=== PATIENT | male | born 1985 | race Caucasian/White ===

== ENCOUNTER 2017-04-15 18:52 | Emergency (ER) | payer OTHER ==
--- NOTE | 2017-04-15 19:14 | ERPHSYRPT ---
- History of Present Illness Time Seen by Provider: 04/15/17 19:00 Historian: patient Exam Limitations: no limitations Patient Subjective Stated Complaint: palpitations, chest pain Physician History: Pt is nonsmoker, admits smoking marijuana, states he had few drinks 3 days ago, Friday night, when he was at a green party, and played the guitar. He started feeling palpitations, which lasted all weekend intermittently. He started c/o left sided chest pressure few hours ago, it has been constant, not radiating, did not take any medications. He denies other complaints, no productive cough, cold, fever. nausea, dizziness, or vomiting. He admitted later, that he has not been taking his Coreg since Friday, because he was drinking, and also took OTC cold medicine. Timing/Duration: day(s) (3) Activities at Onset: activity Quality: pressure Location: other (left chest) Chest Pain Radiation: no radiation Severity of Pain-Max: mild Severity of Pain-Current: mild Modifying Factors: Improves With: nothing Associated Symptoms: palpitations, shortness of breath Prior Chest Pain/Cardiac Workup: no prior chest pain Aspirin Treatment Today: no aspirin today Allergies/Adverse Reactions: No Known Allergies Allergy (Mild, Verified 04/15/17 19:13) Home Medications: Carvedilol 12.5 mg [Coreg 12.5 mg] 40 mg 04/15/17 [History] - Review of Systems Cardiac: Chest Pain, Palpitations All Other Systems: Reviewed and Negative - Past Medical History Pertinent Past Medical History: Yes Cardiac History: Hypertension - Nursing Vital Signs Nursing Vital Signs: Initial Vital Signs Temperature 97.9 F 04/15/17 19:04 Pulse Rate 118 H 04/15/17 19:04 Respiratory Rate 15 04/15/17 19:04 Blood Pressure 176/118 04/15/17 19:04 O2 Sat by Pulse Oximetry 97 04/15/17 19:04 Pain Scale Pain Intensity 0 - Physical Exam General Appearance: no apparent distress Ears, Nose, Throat Exam: normal ENT inspection, moist mucous membranes Neck Exam: normal inspection, non-tender, supple, No mass, No lymphadenopathy Respiratory Exam: normal breath sounds, lungs clear, No chest tenderness, No respiratory distress Cardiovascular Exam: regular rate/rhythm, normal heart sounds, normal peripheral pulses, No murmur Gastrointestinal/Abdomen Exam: soft, normal bowel sounds, No tenderness, No distention Back Exam: normal inspection, No CVA tenderness Extremity Exam: normal inspection, No calf tenderness, No pedal edema Neurologic Exam: alert, oriented x 3, cooperative, normal mood/affect Skin Exam: normal color, warm, dry, No rash Lymphatic Exam: No adenopathy SpO2 Interpretation: normal Oxygen Delivery: Room Air - Course EKG Interpreted by Me: RATE (107/min), Sinus Tach, Left Ajo Deviation, Non- specific ST Changes - Radiology Exams Chest X-ray Interpretation: Interpreted by me, Negative, No Pneumonia, No Pneumothorax , No Infiltrates Ordered Tests: Active Orders 24 hr Category Date Time Status Clean Catch Urine Specimen STAT Care 04/15/17 19:19 Active EKG-ER Only STAT Care 04/15/17 19:16 Active EKG-ER Only STAT Care 04/15/17 22:15 Active IV Insertion STAT Care 04/15/17 19:16 Active Oxygen-ED Only NASAL CANNULA 2 lpm Care 04/15/17 19:16 Active CHEST 1 VIEW (PORTABLE) Stat Exams 04/15/17 19:17 Taken CBC W DIFF Stat Lab 04/15/17 19:25 Completed CMP Stat Lab 04/15/17 19:25 Completed D-DIMER QUANTITATION Stat Lab 04/15/17 20:12 Completed MAGNESIUM Stat Lab 04/15/17 19:16 Completed NT PRO BNP Stat Lab 04/15/17 19:25 Completed PROTIME WITH INR Stat Lab 04/15/17 19:25 Completed TROPONIN Q3H Lab 04/15/17 19:25 Completed TROPONIN Q3H Lab 04/15/17 22:56 Completed TROPONIN Q3H Lab 04/16/17 01:30 Ordered TROPONIN Q3H Lab 04/16/17 04:30 Ordered TROPONIN Q3H Lab 04/16/17 07:30 Ordered TSH, 3RD Generation Stat Lab 04/15/17 19:25 Completed Urine Triage Profile Stat Lab 04/15/17 20:04 Completed Respiratory Nebulizer STAT RT 04/15/17 20:54 Completed Medication Summary Generic Name Dose Route Start Last Admin Trade Name Freq PRN Reason Stop Dose Admin Potassium Chloride 40 meq 04/16/17 10:00 04/15/17 20:21 Potassium Chloride 20 Meq Powder For Oral Monique PO 05/16/17 09:59 40 meq DAILY RENÉ Administration Discontinued Medications Generic Name Dose Route Start Last Admin Trade Name Freq PRN Reason Stop Dose Admin Albuterol/Ipratropium 3 ml 04/15/17 20:54 04/15/17 21:17 Duoneb 0.5-3 Mg/3 Ml Neb IH 04/15/17 20:55 3 ml STAT ONE Administration Albuterol/Ipratropium Confirm 04/15/17 21:14 Duoneb 0.5-3 Mg/3 Ml Neb Administered 04/15/17 21:15 Dose 3 ml IH .STK-MED ONE Aspirin 324 mg 04/15/17 19:16 04/15/17 19:23 Baby Aspirin 81 Mg Chew PO 04/15/17 19:17 324 mg STAT ONE Administration Aspirin Confirm 04/15/17 19:21 Baby Aspirin 81 Mg Chew Administered 04/15/17 19:22 Dose 324 mg .ROUTE .STK-MED ONE Clonidine 0.1 mg 04/15/17 19:20 04/15/17 19:26 Catapres 0.1 Mg PO 04/15/17 19:21 0.1 mg STAT ONE Administration Clonidine Confirm 04/15/17 19:25 Catapres 0.1 Mg Administered 04/15/17 19:26 Dose 0.1 mg .ROUTE .STK-MED ONE Hydralazine HCl 10 mg 04/15/17 20:54 04/15/17 21:27 Apresoline 20 Mg/Ml Inj IV 04/15/17 20:55 10 mg STAT ONE Administration Hydralazine HCl Confirm 04/15/17 21:00 Apresoline 20 Mg/Ml Inj Administered 04/15/17 21:01 Dose 20 mg .ROUTE .STK-MED ONE Sodium Chloride 1,000 mls @ 999 mls/hr 04/15/17 20:12 04/15/17 20:21 Sodium Chloride 0.9% 1000 Ml IV 04/15/17 21:12 999 mls/hr .Q1H1M STA Administration Sodium Chloride Confirm 04/15/17 20:15 Sodium Chloride 0.9% 1000 Ml Administered 04/15/17 20:16 Dose 1,000 mls @ ud .ROUTE .STK-MED ONE Lorazepam 1 mg 04/15/17 19:18 04/15/17 19:23 Ativan 1 Mg PO 04/15/17 19:19 1 mg STAT ONE Administration Lorazepam Confirm 04/15/17 19:21 Ativan 1 Mg Administered 04/15/17 19:22 Dose 1 mg .ROUTE .STK-MED ONE Potassium Chloride 40 meq 04/16/17 10:00 Potassium Chl 40 Meq/30 Ml Oral Solution PO 05/16/17 09:59 DAILY RENÉ Potassium Chloride Confirm 04/15/17 20:16 Potassium Chloride 20 Meq Powder For Oral Monique Administered 04/15/17 20:17 Dose 40 meq .ROUTE .STK-MED ONE Lab/Rad Data: Laboratory Result Diagrams 04/15/17 19:25 04/15/17 19:25 Laboratory Results 04/15/17 04/15/17 04/15/17 Range/Units 22:56 20:12 20:04 WBC (4.0-10.5) K/mm3 RBC (4.1-5.6) M/mm3 Hgb (12.5-18.0) gm/dl Hct (42-50) % MCV (78-100) fl MCH (26-32) pg MCHC (32-36) g/dl RDW (11.5-14.0) % Plt Count (150-450) K/mm3 MPV (6-9.5) fl Gran % (36.0-66.0) % Lymphocytes % (24.0-44.0) % Monocytes % (0.0-12.0) % Eosinophils % (0.00-5.0) % Basophils % (0.0-0.4) % Basophils # (0-0.4) INR (0.8-3.0) D-Dimer < 215 (0-500) ng/mL Sodium (136-145) mEq/L Potassium (3.5-5.1) mEq/L Chloride (98-107) mEq/L Carbon Dioxide (21-32) mEq/L Anion Gap (5-15) MEQ/L BUN (9-20) mg/dL Creatinine (0.55-1.30) mg/dl Estimated GFR ML/MIN Glucose (70-110) MG/DL Calcium (8.5-10.1) mg/dL Magnesium (1.8-2.4) mg/dL Total Bilirubin (0.2-1.0) mg/dL AST (15-37) U/L ALT (12-78) U/L Alkaline Phosphatase (46-116) U/L Troponin I < 0.017 (0.000-0.056) ng/ml NT-Pro-B Natriuret Pep (0-125) pg/ml Serum Total Protein (6.4-8.2) gm/dL Albumin (3.4-5.0) g/dL TSH 3rd Generation (0.358-3.740) mIU/L Urine Opiates Level NEG. (NEGATIVE) Ur Methadone NEG. (NEGATIVE) Urine Barbiturates NEG. (NEGATIVE) Ur Phencyclidine (PCP) NEG. (NEGATIVE) Urine Amphetamine POS. (NEGATIVE) U Benzodiazepine Level NEG. (NEGATIVE) Urine Cocaine NEG. (NEGATIVE) Urine Marijuana (THC) POS. (NEGATIVE) 04/15/17 04/15/17 04/15/17 Range/Units 19:25 19:25 19:25 WBC (4.0-10.5) K/mm3 RBC (4.1-5.6) M/mm3 Hgb (12.5-18.0) gm/dl Hct (42-50) % MCV (78-100) fl MCH (26-32) pg MCHC (32-36) g/dl RDW (11.5-14.0) % Plt Count (150-450) K/mm3 MPV (6-9.5) fl Gran % (36.0-66.0) % Lymphocytes % (24.0-44.0) % Monocytes % (0.0-12.0) % Eosinophils % (0.00-5.0) % Basophils % (0.0-0.4) % Basophils # (0-0.4) INR 1.19 (0.8-3.0) D-Dimer (0-500) ng/mL Sodium (136-145) mEq/L Potassium (3.5-5.1) mEq/L Chloride (98-107) mEq/L Carbon Dioxide (21-32) mEq/L Anion Gap (5-15) MEQ/L BUN (9-20) mg/dL Creatinine (0.55-1.30) mg/dl Estimated GFR ML/MIN Glucose (70-110) MG/DL Calcium (8.5-10.1) mg/dL Magnesium (1.8-2.4) mg/dL Total Bilirubin (0.2-1.0) mg/dL AST (15-37) U/L ALT (12-78) U/L Alkaline Phosphatase (46-116) U/L Troponin I < 0.017 (0.000-0.056) ng/ml NT-Pro-B Natriuret Pep (0-125) pg/ml Serum Total Protein (6.4-8.2) gm/dL Albumin (3.4-5.0) g/dL TSH 3rd Generation 0.962 (0.358-3.740) mIU/L Urine Opiates Level (NEGATIVE) Ur Methadone (NEGATIVE) Urine Barbiturates (NEGATIVE) Ur Phencyclidine (PCP) (NEGATIVE) Urine Amphetamine (NEGATIVE) U Benzodiazepine Level (NEGATIVE) Urine Cocaine (NEGATIVE) Urine Marijuana (THC) (NEGATIVE) 04/15/17 04/15/17 04/15/17 Range/Units 19:25 19:25 19:16 WBC 12.2 H (4.0-10.5) K/mm3 RBC 5.53 (4.1-5.6) M/mm3 Hgb 16.1 (12.5-18.0) gm/dl Hct 47.7 (42-50) % MCV 86.3 (78-100) fl MCH 29.1 (26-32) pg MCHC 33.8 (32-36) g/dl RDW 13.6 (11.5-14.0) % Plt Count 383 (150-450) K/mm3 MPV 10.3 H (6-9.5) fl Gran % 74.1 H (36.0-66.0) % Lymphocytes % 18.6 L (24.0-44.0) % Monocytes % 6.7 (0.0-12.0) % Eosinophils % 0.3 (0.00-5.0) % Basophils % 0.3 (0.0-0.4) % Basophils # 0.04 (0-0.4) INR (0.8-3.0) D-Dimer (0-500) ng/mL Sodium 138 (136-145) mEq/L Potassium 3.0 L* (3.5-5.1) mEq/L Chloride 100 (98-107) mEq/L Carbon Dioxide 27.8 (21-32) mEq/L Anion Gap 13.2 (5-15) MEQ/L BUN 11 (9-20) mg/dL Creatinine 0.87 (0.55-1.30) mg/dl Estimated GFR > 60 ML/MIN Glucose 123 H (70-110) MG/DL Calcium 9.9 (8.5-10.1) mg/dL Magnesium 3.5 H (1.8-2.4) mg/dL Total Bilirubin 1.30 H (0.2-1.0) mg/dL AST 29 (15-37) U/L ALT 52 (12-78) U/L Alkaline Phosphatase 90 (46-116) U/L Troponin I (0.000-0.056) ng/ml NT-Pro-B Natriuret Pep 62 (0-125) pg/ml Serum Total Protein 9.1 H (6.4-8.2) gm/dL Albumin 4.4 (3.4-5.0) g/dL TSH 3rd Generation (0.358-3.740) mIU/L Urine Opiates Level (NEGATIVE) Ur Methadone (NEGATIVE) Urine Barbiturates (NEGATIVE) Ur Phencyclidine (PCP) (NEGATIVE) Urine Amphetamine (NEGATIVE) U Benzodiazepine Level (NEGATIVE) Urine Cocaine (NEGATIVE) Urine Marijuana (THC) (NEGATIVE) - Progress Progress: improved Air Movement: good Progress Note: 04/16/17 00:04 Pt improved after iv fluids, Ativan PO, repeated troponin negative, heart rate controlled Blood pressure is better after PO Clonidine and Hydralizine, stable, chest pain resolved. - Departure Time of Disposition: 00:05 Departure Disposition: Home Clinical Impression: Hypokalemia Hypertension Qualifiers: Hypertension type: unspecified Qualified Code(s): I10 - Essential (primary) hypertension Chest pain Qualifiers: Chest pain type: unspecified Qualified Code(s): R07.9 - Chest pain, unspecified Condition: Stable Critical Care Time: No Referrals: YUE NUNO [Primary Care Provider] - Additional Instructions: Rest x 2-3 days, follow up with your Primary care doctor in 2-3 days, and start taking Coreg as instructed! Avoid OTC cold medicined and coffeine, also street drugs! Return if chest pain, shortness of breath, vomiting, severe dizziness or blood pressure > 200/110!
[2017-04-15] MEDS ORDERED: BABY ASPIRIN 81 MG CHEW PO ONE (19:16)
[2017-04-15] MEDS ORDERED: Ativan 1 MG PO ONE (19:18)
[2017-04-15] MEDS ORDERED: Catapres 0.1 MG PO ONE (19:20)
[2017-04-15] MEDS ORDERED: BABY ASPIRIN 81 MG CHEW ONE (19:21)
[2017-04-15] MEDS ORDERED: Ativan 1 MG ONE (19:21)
[2017-04-15] MEDS ORDERED: Catapres 0.1 MG ONE (19:25)
[2017-04-15 19:37] LABS: BASOPHIL % 0.3 % (0.0-0.4); Eosinophil % 0.3 % (0.00-5.0); Granulocytes % 74.1 % (36.0-66.0); Lymphocytes % 18.6 % (24.0-44.0); Mean Cell Volume 86.3 fl (78-100); Mean Corpuscular Hemoglobin 29.1 pg (26-32); Mean Platelet Volume 10.3 fl (6-9.5); Monocytes % 6.7 % (0.0-12.0); Platelet Count 383 K/mm3 (150-450); Red Blood Count 5.53 M/mm3 (4.1-5.6); Red Cell Distribution Width 13.6 % (11.5-14.0); White Blood Count 12.2 K/mm3 (4.0-10.5)
[2017-04-15 19:51] LABS: INR 1.19 (0.8-3.0); PROTIME 13.3 SECONDS (8.83-12.87)
[2017-04-15 20:06] LABS: ALBUMIN 4.4 g/dL (3.4-5.0); ALKALINE PHOSPHATASE 90 U/L (46-116); ANION GAP 13.2 MEQ/L (5-15); BLOOD UREA NITROGEN 11 mg/dL (9-20); CHLORIDE 100 mEq/L (98-107); Carbon Dioxide 27.8 mEq/L (21-32); Glucose 123 MG/DL (70-110); SGOT/AST 29 U/L (15-37); SGPT/ALT 52 U/L (12-78); SODIUM 138 mEq/L (136-145); Total Protein 9.1 gm/dL (6.4-8.2)
[2017-04-15] MEDS ORDERED: Sodium Chloride 0.9% 1000 ML 1,000 ML IV STA (20:12)
[2017-04-15] MEDS ORDERED: Sodium Chloride 0.9% 1000 ML 1,000 ML ONE (20:15)
[2017-04-15] MEDS ORDERED: POTASSIUM CHLORIDE 20 MEQ POWDER FOR ORAL SOL ONE (20:16)
[2017-04-15] MEDS ORDERED: APRESOLINE 20 MG/ML INJ IV ONE (20:54)
[2017-04-15] MEDS ORDERED: DUONEB 0.5-3 MG/3 ml Neb IH ONE ×2 (20:54→21:14)
[2017-04-15] MEDS ORDERED: APRESOLINE 20 MG/ML INJ ONE (21:00)
[2017-04-15 23:33] VITALS: BP 159/97; PULSE 105; O2SAT 99
--- NOTE | 2017-04-16 09:15 | XRAY ---
Indication: Chest pain. Comparison: None Portable apical lordotic chest clear. Heart and mediastinal structures within normal limits. Bony thorax intact. Impression: Nonacute chest.
[2017-04-16] MEDS ORDERED: POTASSIUM CHL 40 MEQ/30 ML ORAL SOLUTION PO SCH (10:00)
[2017-04-16] MEDS ORDERED: POTASSIUM CHLORIDE 20 MEQ POWDER FOR ORAL SOL PO SCH (10:00)
== END 2017-04-16 00:18 | disposition home or self-care (01) ==
LOC: ED 18:52
DX: I10 Essential (primary) hypertension (principal); R07.9 Chest pain, unspecified; E87.6 Hypokalemia
CPT/HCPCS: 36000; 36415; 71010; 80053; 80307; 83735; 83880; 84443; 84484; 85025; 85379; 85610; 93005; 94640; 96360; 96374; 96375; 99284; J0360; A9270-GY